=== PATIENT | male | born 1970 | race Caucasian/White ===

== ENCOUNTER 2017-02-22 10:56 | Emergency (ER) | payer MEDICAID ==
[~2017-02-22] VITALS: Ht 152.4 cm; Wt 68.0 kg
[2017-02-22] MEDS ORDERED: LORAZEPAM 1 MG TABLET ONE (11:16)
[2017-02-22] MEDS ORDERED: OLANZAPINE 5 MG TABLET ONE (11:16)
--- NOTE | 2017-02-22 11:26 | NUR ---
PT BIB SELF C/O ANXIETY. PT IS CRYING, STATES "PUT ME TO SLEEP" AND "DON'T DEPORT ME". DENIES PAIN OR SOB. RESP EVEN UNLABORED, RAPID D/T CRYING. IN ER BED . 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
[2017-02-22] MEDS ORDERED: OLANZAPINE 5 MG TABLET PO ONE (11:30)
[2017-02-22] MEDS ORDERED: LORAZEPAM 1 MG TABLET PO ONE (11:30)
[2017-02-22 11:32] LABS: BASOPHILS % (AUTO) 0.3 % (0.0-2.0); EOSINOPHILS # (AUTO) 0.2 /CMM (0.0-0.7); EOSINOPHILS % (AUTO) 1.6 % (0.0-6.0); HEMATOCRIT 50 % (39-51); HEMOGLOBIN 16.7 g/dL (13.5-17.5); LYMPHOCYTES # (AUTO) 2.3 /CMM (0.8-4.8); LYMPHOCYTES % (AUTO) 20.8 % (20.0-44.0); MEAN CORPUSCULAR HEMOGLOBIN 29 PG (26.0-33.0); MEAN CORPUSCULAR HGB CONC 34 g/dl (31.0-36.0); MEAN CORPUSCULAR VOLUME 87 fL (80-96); MONOCYTES # (AUTO) 0.3 /CMM (0.1-1.30); MONOCYTES % (AUTO) 3.1 % (2.0-12.0); NEUTROPHILS # (AUTO) 8.4 /CMM (1.8-8.9); NEUTROPHILS % (AUTO) 74.2 % (43.0-81.0); PLATELET COUNT (AUTO) 282 /CMM (150-450); RDW COEFFICIENT OF VARIATION 12.1 (11.5-15.0); RED BLOOD CELL COUNT(AUTO) 5.71 MIL/uL (4.5-6.0); WHITE BLOOD COUNT (AUTO) 11.3 K/uL (4.3-11.0)
[2017-02-22 11:43] LABS: CALCIUM, SERUM 9.1 mg/dL (8.5-10.1); CARBON DIOXIDE 28 mmol/L (21-32); CHLORIDE 100 mmol/L (98-107); CREATININE 1.1 mg/dL (0.6-1.3); GFR 72 mL/min (>60); GLUCOSE 127 mg/dL (74-106); POTASSIUM 3.8 mmol/L (3.5-5.1); SODIUM SERUM 141 mmol/L (136-145); UREA NITROGEN, BLOOD 9 mg/dL (7-18)
[2017-02-22 11:55] LABS: ALANINE AMINOTRANSFERASE 28 U/L (12-78); ALBUMIN 4.4 g/dL (3.4-5.0); ALKALINE PHOSPHATASE 76 U/L (46-116); ASPARTATE AMINOTRANSFERASE 21 U/L (15-37); BILIRUBIN,DIRECT 0.1 mg/dL (0.0-0.2); BILIRUBIN,TOTAL 0.6 mg/dL (0.2-1.0); SALICYLATE 5.3 mg/dL (2.8-20.0)
[2017-02-22 11:56] LABS: ACETAMINOPHEN 0 ug/ml (10-30); ALCOHOL, BLOOD < 3 mg/dL (0-0)
[2017-02-22 12:22] VITALS: BP 153/102
--- NOTE | 2017-02-22 12:23 | NUR ---
Patient discharged to home in stable condition. Written and verbal after care instructions given. Patient verbalizes understanding of instruction. AMBULATORY WITH STEADY GAIT.
== END 2017-02-22 12:23 | disposition home or self-care (01) ==
LOC: ER 10:59
DX: F29 Unspecified psychosis not due to a substance or known physiological condition (principal); I10 Essential (primary) hypertension; F17.200 Nicotine dependence, unspecified, uncomplicated; Z88.6 Allergy status to analgesic agent
CPT/HCPCS: 36415; 80048; 80076; 80329; 85025; 99284; A4606; G0480 ×2; Z7610; G6039-TC

== ENCOUNTER 2017-02-22 14:44 | Emergency (ER) | payer MEDICAID ==
[~2017-02-22] VITALS: Ht 160 cm; Wt 65.8 kg
[2017-02-22 14:46] VITALS: BP 135/85
--- NOTE | 2017-02-22 14:54 | NUR ---
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 RESP EVEN UNLABORED. NAD NOTED. DISORIENTED BUT AWAKE AND ALERT. AMBULATORY WITH STEADY GAIT. IN ER BED 15.
--- NOTE | 2017-02-22 15:26 | NUR ---
PT ELOPED FROM FACILITY; EMT MIR REMOVED IV, PRESSURE DRESSING APPLIED, NAD NOTED. NOTIFIED.
== END 2017-02-22 15:49 | disposition left against medical advice (07) ==
LOC: ER 14:46
DX: F11.90 Opioid use, unspecified, uncomplicated (principal); I10 Essential (primary) hypertension; F41.9 Anxiety disorder, unspecified; F17.200 Nicotine dependence, unspecified, uncomplicated; Z88.6 Allergy status to analgesic agent
CPT/HCPCS: 99284; A4606; Z7610

== ENCOUNTER 2017-06-25 13:51 | Emergency (ER) | payer MEDICAID, OTHER ==
[~2017-06-25] VITALS: Ht 165.1 cm; Wt 65.8 kg
[2017-06-25 13:55] VITALS: BP 123/86
[2017-06-25] MEDS ORDERED: ACETAMINOPHEN ES 500 MG TABLET ONE (15:28)
[2017-06-25] MEDS ORDERED: ACETAMINOPHEN ES 500 MG TABLET PO ONE (15:30)
== END 2017-06-25 15:31 | disposition home or self-care (01) ==
LOC: ER 13:52
DX: M25.512 Pain in left shoulder (principal); I10 Essential (primary) hypertension; F41.9 Anxiety disorder, unspecified; F17.200 Nicotine dependence, unspecified, uncomplicated; Z88.8 Allergy status to other drugs, medicaments and biological substances
CPT/HCPCS: 99282; A4606; Z7610